=== PATIENT | male | born 1960 | race Caucasian/White ===

== ENCOUNTER → 2024-02-14 09:34 | Outpatient (REF) | payer BC, SELFPAY ==
[2024-02-14 12:18] LABS: % Basophils 1.1 % (0-2); % Eosinophils 3.7 % (0-6); % Immature Granulocytes 0.1 % (0-0.5); % Lymphocytes 28.4 % (20.5-51.1); % Monocytes 10.5 % (1.7-9.3); % Neutrophils 56.2 % (42.2-75.2); Absolute Basophils 0.1 10^3/uL (0-0.2); Absolute Eosinophils 0.3 10^3/uL (0-0.7); Absolute Monocytes 0.7 10^3/uL (0.1-0.6); Absolute Neutrophils 3.9 10^3/uL (1.4-6.5); Hematocrit 46.4 % (39.0-52.0); Hemoglobin 16.3 g/dL (13.0-18.0); Mean Corp Hgb Conc. 35.1 g/dL (33.0-37.0); Mean Corpuscular Hgb 30.8 pg (27.0-31.0); Mean Corpuscular Volume 87.5 fL (80.0-94.0); Mean Platelet Volume 11.7 fL (7.4-10.4); Nucleated Red Blood Cells % 0 % (-); Platelet Count 189 10^3/uL (130-400); Red Cell Dist. Width 12.9 % (11.5-14.5)
[2024-02-14 12:31] LABS: ALT (SGPT) 57 U/L (0-50); AST (SGOT) 39 U/L (17-59); Albumin 4.4 g/dl (3.5-5.0); Alkaline Phosphatase 72 U/L (38-126); Blood Urea Nitrogen 16 mg/dl (9-20); Calcium 9.7 mg/dl (8.4-10.2); Carbon Dioxide 23 mmol/L (22-30); Chloride 107 mmol/L (98-107); Glucose 113 mg/dl (70-99); Potassium 4.4 mmol/L (3.5-5.1); Sodium 144 mmol/L (135-145); Total Bilirubin 0.8 mg/dl (0.2-1.3); Total Protein 7.2 g/dl (6.3-8.2); eGFR > 60.00
[2024-02-14 13:02] LABS: PSA, Total - Screen 2.12 ng/ml (0.0-4.0); TSH Reflex To Free T4 3.42 uIU/ml (0.47-4.68)
[2024-02-14 15:08] LABS: Glycohemoglobin (HgbA1c) 5.9 % (4.0-5.6)
== END ==
LOC: HWLAB 09:34
PROVIDERS: ATTENDING PHYSICIAN Nurse Practitioner Family
DX: R35.0 Frequency of micturition (principal); R63.5 Abnormal weight gain; R73.01 Impaired fasting glucose
CPT/HCPCS: 36415; 80053; 83036; 84443; 85025; G0103

== ENCOUNTER 2024-03-19 10:44 | Emergency (ER) | payer BC, SELFPAY ==
[2024-03-19] VITALS (9 sets, daily range): BP systolic 135–161; BP diastolic 82–100; PULSE 66–70; BMI 32.5
--- NOTE | 2024-03-19 11:31 | ED.GENMED ---
History of Present Illness
General
Chief Complaint: Fainting Sensation
Source: patient
Time Seen by Provider: 03/19/24 11:15
History of Present Illness
History of Present Illness:
63yoM with a history of hyperlipidemia, GERD, and anxiety presenting with his for evaluation of dizziness. He reports constant mild lightheadedness for the past 6 days. Nothing seems to make this better or worse. He started to experience
tinnitus in his right ear last night. Patient states he tenderness has a pattern to it although he is unable to describe this. He told his PCP that his tenderness was pulsatile although he denies this for me. He started to feel mildly off balance
earlier today. He denies any vertiginous symptoms. He was seen by his PCP earlier today and he was sent to the ED for evaluation. Of note, patient was seen by a retinal specialist last week and was diagnosed with a 'pucker' on his retina. He was
started on prednisolone and ketorolac drops 1 day prior to his symptoms starting. He stopped taking the eyedrops due to his dizziness. He spoke with his service supervisor to told him that his symptoms are likely unrelated to these eyedrops. He is
otherwise asymptomatic and denies any headache, visual changes, vomiting, diarrhea, fevers, chills, chest pain, shortness of breath.
Past History
Past History
ED Past Medical History: None
ED Past Surgical History: None
Social History
Tobacco: Non-smoker
Alcohol: None
Drug: None
Personal:
Phy Exam
General Physical Exam
General Presentation: well appearing and no apparent distress
General age: appears stated age
General Skin: warm and dry
General Habitus: normal
General Mental: alert
General Hydration: appears well hydrated
ENT Exam
ENT Exam: TM's normal, pharynx normal and normocephalic
Eye Exam
Eye Exam: PERRL and EOMI
Cardiovascular Exam
Cardiovascular Exam: regular rate/rhythm
Pulmonary Exam
Pulmonary Exam: lungs clear, no respiratory distress, no crackles and no wheezing
Neurological Exam
Neurological Exam: alert and no motor deficits
Ruddy Coma Scale
Eye Opening: Spontaneous
Verbal Response: Oriented
Motor Response: Obeys Commands
GCS Total Score: 15
Skin Exam
Skin Exam: normal color and warm/dry
Psychiatric Exam
Psychiatric Exam: normal mood/affect
Course
Orders/Labs/Results
Orders:
Orders
03/19/24 10:47
Electrocardiogram (*1) Urgent
Reason for Study: Other
Other Reason for Exam: lightheaded since tuesday
03/19/24 10:48
EKG- Treatment ONCE
03/19/24 11:29
CT Head & Neck Angio W/wo IV Urgent
Comment:
Reason For Exam: Pulsatile tinnitus
Cardiac Monitoring- Treatment ONCE
Orthostatic VS- Treatment ONCE
03/19/24 11:34
Complete Blood Count/With Diff Urgent
Comprehensive Metabolic Panel Urgent
Troponin I Urgent
Abnormal Lab Results
03/19/24
11:34
MCH 31.9 H pg
(27.0-31.0)
MPV 10.9 H fL
(7.4-10.4)
Absolute Neuts (auto) 7.4 H 10^3/uL
(1.4-6.5)
Absolute Monos (auto) 0.7 H 10^3/uL
(0.1-0.6)
Neutrophils % 75.8 H %
(42.2-75.2)
Lymphocytes % 14.3 L %
(20.5-51.1)
Glucose 151 H mg/dl
(70-99)
ALT 52 H U/L
(0-50)
Albumin 3.0 L g/dl
(3.5-5.0)
03/19/24 11:34
03/19/24 11:34
Vital Signs
Initial and Last Documented VS:
Initial Vital Signs
Temp Pulse Resp BP Pulse Ox
98.6 F 63 16 152/96 98
03/19/24 10:45 03/19/24 10:45 03/19/24 10:45 03/19/24 10:45 03/19/24 10:45
Last Documented Vital Signs
Temp Pulse Resp BP Pulse Ox
98.6 F 63 16 142/99 95
03/19/24 10:45 03/19/24 14:00 03/19/24 10:45 03/19/24 14:00 03/19/24 14:00
MDM/Problems Addressed
Differential Diagnosis Includes:
63yoM here with lightheadedness x 6 days. New R tinnitus since yesterday. Sent here by PCP. No vertiginous symptoms. No CP/SOB. He is afebrile and hemodynamically stable. He is well appearing in no distress. Exam is reassuring. Differential
diagnosis includes but is not limited to: orthostatic hypotension, ACS, arrhythmia, dehydration, doubt CVA
Initial ED plan: Check cardiac labs, EKG, orthostatic vital signs, and CTA head/neck.
*EKG
Interpreted by ED Provider?: Yes
EKG Intrepretation Date: 03/19/24
Heart Rate: 55
Rate: bradycardiac
Rhythm: sinus
[place]: normal axis
Interval: normal interval
QRS Pattern: normal QRS
Ischemia: no ischemia
*Critical Care Note
Total Time (30-74mins, 75-104mins- exclusive of procedures): Not Applicable
Update Note
Update Note:
Labs overall unremarkable including normal blood counts and electrolytes. EKG shows NSR without ischemic changes and troponin WNL. CTA head/neck is negative for acute intracranial abnormalities. There is a R thyroid nodule and a L maxillary sinus
retention cyst/polyp seen incidentally. 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 No indication for hospitalization. Patient and notified of
incidental findings and were provided with a copy of his CT scan report. He was advised to f/u with his PCP and ENT. ED return precautions discussed. He was discharged in stable condition.
ED Attending Note
-
Portions of this chart may have been created with voice recognition software.� Occasional wrong word or��sound alike� substitutions may have occurred due to the inherent limitations of voice recognition software.
Discharge Plan
Departure
Patient Disposition: Home (Routine Discharge)
Date of Disposition: 03/19/24
Time of Disposition: 13:43
Patient with high blood pressure during this ER visit?: Yes
Discharge Problem:
Lightheadedness, New onset tinnitus of right ear, Right thyroid nodule, Premature ventricular contractions (PVCs) (VPCs)
Instructions: Dizziness, Nonvertigo, (DC)
Prescriptions:
No Action
omeprazole 20 MG capsule,delayed release(DR/EC)
20 mg PO DAILY
Symbicort 80/4.5 Mcg Inhaler:
1 puff inhalation DAILY
acetaminophen-codeine 1 TABLET tablet
1 - 2 tab PO Q4HPRN PRN (Reason: mod-severe pain) Qty: 30 0RF
naproxen 500 MG tablet
500 mg PO BID Qty: 20 0RF
Rx Instructions:
same as Aleve, no Rx needed
famotidine 20 MG tablet
20 mg PO BID Qty: 20 0RF
Rx Instructions:
equivalent to Zantac 150 (over the counter)
No Rx needed
amoxicillin-pot clavulanate 1 TABLET tablet
1 tab PO Q12 Qty: 6 0RF
Referrals:
Eric Gonzalez CRNP [Family Provider] -
Charly Chavarria MD [Active] -
Activity Restrictions/Additional Instructions:
Please call today to schedule follow-up appointments with your family doctor and ENT. Return to the ER with any new or worsening symptoms.
You will need an ultrasound of your thyroid for the nodule seen on your CT scan.
Interventions
Interventions:
*Risk Screen - Suicide Last Done: 03/19/24 10:45
*General Assessment Last Done: 03/19/24 11:18
*Neglect/Abuse Screening Last Done: 03/19/24 10:45
*Nursing Disposition Last Done: 03/19/24 14:40
ED- Cardiac Assessment Last Done: 03/19/24 11:36
ED- Neurological Assessment Last Done: 03/19/24 11:36
Discharge Date and Time
Discharge Date/Time: 03/19/24 14:40
Print Language: [place]
[2024-03-19 11:53] LABS: % Basophils 0.6 % (0-2); % Eosinophils 1.6 % (0-6); % Immature Granulocytes 0.4 % (0-0.5); % Lymphocytes 14.3 % (20.5-51.1); % Monocytes 7.3 % (1.7-9.3); % Neutrophils 75.8 % (42.2-75.2); Absolute Basophils 0.1 10^3/uL (0-0.2); Absolute Eosinophils 0.2 10^3/uL (0-0.7); Absolute Lymphocytes 1.4 10^3/uL (1.2-3.4); Absolute Monocytes 0.7 10^3/uL (0.1-0.6); Absolute Neutrophils 7.4 10^3/uL (1.4-6.5); Hemoglobin 17.6 g/dL (13.0-18.0); Mean Corp Hgb Conc. 35.9 g/dL (33.0-37.0); Mean Corpuscular Hgb 31.9 pg (27.0-31.0); Mean Corpuscular Volume 88.9 fL (80.0-94.0); Mean Platelet Volume 10.9 fL (7.4-10.4); Nucleated Red Blood Cells % 0 % (-); Platelet Count 200 10^3/uL (130-400); Red Blood Cell Count 5.51 10^6/uL (4.70-6.10); Red Cell Dist. Width 12.6 % (11.5-14.5); White Blood Cell Count 9.8 10^3/uL (4.8-10.8)
[2024-03-19 12:03] LABS: ALT (SGPT) 52 U/L (0-50); AST (SGOT) 35 U/L (17-59); Alkaline Phosphatase 67 U/L (38-126); Blood Urea Nitrogen 20 mg/dl (9-20); Calcium 9.7 mg/dl (8.4-10.2); Carbon Dioxide 23 mmol/L (22-30); Chloride 107 mmol/L (98-107); Estimated Creatinine Clearance 102 ml/min; Glucose 151 mg/dl (70-99); Potassium 4.3 mmol/L (3.5-5.1); Sodium 143 mmol/L (135-145); Total Bilirubin 0.8 mg/dl (0.2-1.3); Total Protein 7.1 g/dl (6.3-8.2); eGFR > 60.00
[2024-03-19 12:14] LABS: Troponin I < 0.012 ng/ml
== END 2024-03-19 14:40 | disposition home or self-care (01) ==
LOC: EMR 10:44
PROVIDERS: Physician Assistant; EMERGENCY PHYSICIAN Emergency Medicine; FAMILY PHYSICIAN Nurse Practitioner Family
DX: R42 Dizziness and giddiness (principal); H93.11 Tinnitus, right ear; E04.1 Nontoxic single thyroid nodule; I49.3 Ventricular premature depolarization; E78.00 Pure hypercholesterolemia, unspecified; K21.9 Gastro-esophageal reflux disease without esophagitis; F41.9 Anxiety disorder, unspecified
CPT/HCPCS: 99284; 70496; 70498; 80053; 84484; 85025; 93005; Q9967

== ENCOUNTER 2024-03-20 10:37 | Emergency (ER) | payer BC, SELFPAY ==
[2024-03-20 10:45] VITALS: BP 174/92
--- NOTE | 2024-03-20 10:48 | ED.GENMED ---
ED Provider Triage
-
Patient seen by provider in Triage?: Seen in Triage
Attestation: A medical screening examination has been initiated by a qualified medical provider. Based on the assessment performed at this time, it has been determined that an emergent medical condition may exist and the patient has been informed
that further medical evaluation and possible additional diagnostic testing may be needed.
HPI: 63-year-old male returns to the ER due to persistent dizziness, right-sided tinnitus, and right-sided hearing loss. Was seen here yesterday and had labs and CTA of the head and neck that were unremarkable. Symptoms worsened today. Describes
a profound lightheadedness, nonvertiginous. No fevers or chills
GENERAL: Alert , in no apparent distress
EYE: No visual abnormalities.
NECK: Trachea midline
ENT: No visible abnormalities.
LUNGS: No acute respiratory distress
NEUROLOGICAL: Alert and oriented
SKIN: Skin intact. No visible changes.
MUSCULOSKELETAL: Moving extremities normally
PSYCH: Normal and appropriate interaction.
A/P: Given unremarkable workup yesterday, lesser concern for cerebrovascular disorder. Given the associated hearing loss and tinnitus consider M�ni�re's disease versus otitis media. Will give a dose of meclizine and reassess
This is a medical evaluation conducted in person to initiate diagnostic evaluation and provide initial therapeutics. Please see further documentation by the treating clinician.
History of Present Illness
General
Chief Complaint: Dizziness
Time Seen by Provider: 03/20/24 12:11
Past History
Past History
ED Past Medical History: None
ED Past Surgical History: None
Social History
Tobacco: Non-smoker
Alcohol: None
Drug: None
Personal:
Course
Orders/Labs/Results
Orders:
Orders
03/20/24 10:47
Meclizine [Antivert] 25 mg PO NOW STA
03/20/24 12:28
Physical Therapy Consult [Pt Eval And Treat] Urgent
Activity Level: As Tolerated
03/20/24 12:38
Diphenhydramine [Benadryl] 25 mg PO NOW STA
Vital Signs
Initial and Last Documented VS:
Initial Vital Signs
Temp Pulse Resp BP Pulse Ox
98.2 F 74 20 174/92 95
03/20/24 10:45 03/20/24 10:45 03/20/24 10:45 03/20/24 10:45 03/20/24 10:45
Last Documented Vital Signs
Temp Pulse Resp BP Pulse Ox
98.2 F 58 18 147/93 98
03/20/24 10:45 03/20/24 14:43 03/20/24 14:43 03/20/24 14:43 03/20/24 14:43
ED Attending Note
-
Portions of this chart may have been created with voice recognition software.� Occasional wrong word or��sound alike� substitutions may have occurred due to the inherent limitations of voice recognition software.
Discharge Plan
Departure
Patient Disposition: Home (Routine Discharge)
Date of Disposition: 03/20/24
Time of Disposition: 14:16
Patient with high blood pressure during this ER visit?: Yes
Condition: Good
Discharge Problem:
Vertigo, Hearing loss
Instructions: Dizziness
Prescriptions:
New
prednisone 50 mg tablet
50 mg PO DAILY Qty: 5 0RF
meclizine 25 mg tablet
25 mg PO TID Qty: 20 0RF
No Action
omeprazole 20 MG capsule,delayed release(DR/EC)
20 mg PO DAILY
Symbicort 80/4.5 Mcg Inhaler:
1 puff inhalation DAILY
acetaminophen-codeine 1 TABLET tablet
1 - 2 tab PO Q4HPRN PRN (Reason: mod-severe pain) Qty: 30 0RF
naproxen 500 MG tablet
500 mg PO BID Qty: 20 0RF
Rx Instructions:
same as Aleve, no Rx needed
famotidine 20 MG tablet
20 mg PO BID Qty: 20 0RF
Rx Instructions:
equivalent to Zantac 150 (over the counter)
No Rx needed
amoxicillin-pot clavulanate 1 TABLET tablet
1 tab PO Q12 Qty: 6 0RF
Referrals:
Eric Gonzalez CRNP [Family Provider] -
James Kumar MD [Active] - Call in 1-3 days for appt (There is an open appointment at 2:40 PM�if you call [phone] today they can schedule you for an appointment.)
Activity Restrictions/Additional Instructions:
You should call the ENT office today to make an appointment as we discussed. In the meantime you should take the daily steroid and you can use the meclizine as needed for dizziness. If you feel your symptoms are worsening please return immediately
to the ER.
Thank you for visiting the Emergency Department at [facility].
1. Please schedule a follow up appointment as directed. Call first thing tomorrow morning to make an appointment.
2. If indicated, please take your medications as instructed and indicated on discharge paperwork.
3. If any of your symptoms do not improve, or persist, or become more severe within 6-12 hours, please return to the emergency department for further care.
4. Please return to the emergency department if you develop a headache, neck pain/stiffness, fever greater than 100.4F, chest pain, shortness of breath, persistent nausea, vomiting, slurred speech, difficulty walking, numbness/tingling, weakness,
signs of infection or any other symptoms that are worrisome to you.
Please call [phone] if you have any questions.
Interventions
Interventions:
*Risk Screen - Suicide Last Done: 03/20/24 10:49
*Nursing Disposition Last Done: 03/20/24 14:45
ED- Neurological Assessment Last Done: 03/20/24 11:46
ED Swallowing Screen Last Done: 03/20/24 11:46
Discharge Date and Time
Discharge Date/Time: 03/20/24 14:46
Print Language: MAORI
[2024-03-20] MEDS: ANTIVERT 25 MG PO (10:52)
[2024-03-20 11:46] VITALS: BMI 34.4
--- NOTE | 2024-03-20 12:13 | ED.GENMED ---
Addendum entered and electronically signed by Clark Barker PA-C 03/21/24 10:01:
Attestation: A medical screening examination has been initiated by a qualified medical provider. Based on the assessment performed at this time, it has been determined that an emergent medical condition may exist and the patient has been informed
that further medical evaluation and possible additional diagnostic testing may be needed.
HPI: 63-year-old male returns to the ER due to persistent dizziness, right-sided tinnitus, and right-sided hearing loss. Was seen here yesterday and had labs and CTA of the head and neck that were unremarkable. Symptoms worsened today. Describes
a profound lightheadedness, nonvertiginous. No fevers or chills
GENERAL: Alert , in no apparent distress
EYE: No visual abnormalities.
NECK: Trachea midline
ENT: No visible abnormalities.
LUNGS: No acute respiratory distress
NEUROLOGICAL: Alert and oriented
SKIN: Skin intact. No visible changes.
MUSCULOSKELETAL: Moving extremities normally
PSYCH: Normal and appropriate interaction.
A/P: Given unremarkable workup yesterday, lesser concern for cerebrovascular disorder. Given the associated hearing loss and tinnitus consider M�ni�re's disease versus otitis media. Will give a dose of meclizine and reassess
This is a medical evaluation conducted in person to initiate diagnostic evaluation and provide initial therapeutics. Please see further documentation by the treating clinician.
Original Note:
History of Present Illness
<Lili Arteaga PA-C - Last Filed: 03/20/24 14:22>
General
Chief Complaint: Dizziness
Source: patient
Exam Limitations: none
Time Seen by Provider: 03/20/24 12:11
Nursing documentation reviewed up to this point in time: agreed with
History of Present Illness
History of Present Illness:
63-year-old male with past medical history of GERD presents to the emergency department today with concerns of multiple days of disequilibrium, right ear hearing loss, and ringing in his ears. Patient states that he was recently evaluated by retina
specialist and was given drops for a 'spot on his retina' and feels as though his symptoms started after this time. Patient is unsure of what this medication is. Patient reports that he called his eye doctor who said the symptoms are not a side
affect of the medication. Patient states that he feels as though when he is walking he feels off balance. He was seen in the emergency department yesterday for same symptoms and told to follow up with ENT but states that since his visit yesterday,
he has still felt dizzy and states that his hearing loss has gotten worse. He denies nausea, vomiting, headache, fevers or chills, one sided weakness, head or neck trauma.
Past History
<Lili Arteaga PA-C - Last Filed: 03/20/24 14:22>
Past History
ED Past Medical History: None
ED Past Surgical History: None
Social History
Tobacco: Non-smoker
Alcohol: None
Drug: None
Personal:
Review of Systems
<ELIZABETH Espinoza Last Filed: 03/20/24 14:22>
Review of Systems
All Other Systems: ROS reviewed and negative except as documented in HPI and ROS
Phy Exam
<ELIZABETH Espinoza Last Filed: 03/20/24 14:22>
Physical Exam
Physical Exam:
General: Patient is well appearing and in no acute distress; non-toxic
Skin: Warm and dry, no rashes or lesions
Head: Normocephalic, atraumatic
Eyes: Sclera non-icteric. EOMs intact. PERRLA.
Cardiac: Regular rate and rhythm, no murmurs
Peripheral Vascular: No lower extremity swelling or edema
Pulm: Normal respiratory effort, no wheezes
Musculoskeletal: 5/5 strength in bilateral upper and lower extremities
Neuro: CN II-XII intact, no focal neurologic deficits. Normal gait, normal heel to nose, finger to sanderson testing intact
Psychiatric: Appropriate mood and affect.
Course
<Lili Arteaga PA-C - Last Filed: 03/20/24 14:22>
Orders/Labs/Results
Orders:
Orders
03/20/24 10:47
Meclizine [Antivert] 25 mg PO NOW STA
03/20/24 12:28
Physical Therapy Consult [Pt Eval And Treat] Urgent
Activity Level: As Tolerated
03/20/24 12:38
Diphenhydramine [Benadryl] 25 mg PO NOW STA
Vital Signs
Initial and Last Documented VS:
Initial Vital Signs
Temp Pulse Resp BP Pulse Ox
36.8 C 74 20 174/92 95
03/20/24 10:45 03/20/24 10:45 03/20/24 10:45 03/20/24 10:45 03/20/24 10:45
Last Documented Vital Signs
Temp Pulse Resp BP Pulse Ox
36.8 C 74 20 174/92 95
03/20/24 10:45 03/20/24 10:45 03/20/24 10:45 03/20/24 10:45 03/20/24 10:45
<Praful Villalba MD - Last Filed: 03/20/24 14:46>
Orders/Labs/Results
Orders:
Orders
03/20/24 10:47
Meclizine [Antivert] 25 mg PO NOW STA
03/20/24 12:28
Physical Therapy Consult [Pt Eval And Treat] Urgent
Activity Level: As Tolerated
03/20/24 12:38
Diphenhydramine [Benadryl] 25 mg PO NOW STA
Vital Signs
Initial and Last Documented VS:
Initial Vital Signs
Temp Pulse Resp BP Pulse Ox
36.8 C 74 20 174/92 95
03/20/24 10:45 03/20/24 10:45 03/20/24 10:45 03/20/24 10:45 03/20/24 10:45
Last Documented Vital Signs
Temp Pulse Resp BP Pulse Ox
36.8 C 74 20 174/92 95
03/20/24 10:45 03/20/24 10:45 03/20/24 10:45 03/20/24 10:45 03/20/24 10:45
<Lili Arteaga PA-C - Last Filed: 03/20/24 14:22>
MDM/Problems Addressed
Differential Diagnosis Includes:
ddx include BPPV, vestibular neuritis, meniere's disease, otitis media, viral syndrome
MDM/Problems Addressed:
63 y/o male presents to the emergency department today with concerns of dizziness, hearing loss, tinnitus for multiple days. Patient was seen here yesterday and had a CTA which was negative. He feels as though his hearing loss and auditory symptoms
have gotten worse. On physical exam, he is well appearing and in no acute distress. His TMs are intact bilaterally. He has no focal neurologic deficits. He has normal finger to nose, heel to sanderson testing, he has a normal gate. He was given Meclizine
in triage which he feels like mildly improved his symptoms. He was evaluated by physical therapy and had a reassuring HINTS exam. I feel that this patient can be evaluated as an outpatient from an ENT perspective, doubt CVA. Will send steroids and
meclizine to pharmacy. Patient stable for discharge.
Chronic conditions affecting care:
GERD
<Lili Arteaga PA-C - Last Filed: 03/20/24 14:22>
*Pulse Oximetry
Patient hypoxic: no
*Critical Care Note
Total Time (30-74mins, 75-104mins- exclusive of procedures): Not Applicable
Data Reviewed
Review of Other/Old Records Reveals: Records (reviewed ER physician documentation from 03/19/2024, patient seen for lightheadedness) and Discharge Summary (no discharge summary in [facility] to review )
Source: patient and records
Prescriptions/Medications Considered But Not Given:
n/a
Further Testing Considered But Not Given:
n/a
ED Attending Note
<Lili Arteaga PA-C - Last Filed: 03/20/24 14:22>
-
Portions of this chart may have been created with voice recognition software.� Occasional wrong word or��sound alike� substitutions may have occurred due to the inherent limitations of voice recognition software.
<Praful Villalba MD - Last Filed: 03/20/24 14:46>
ED Attending Note
Patient seen and examined by attending physician: Yes
ED Attending Note:
I have seen and evaluated the patient with a [id number] encounter. I have spoken to the advance practicer provider and involved in the medical history, the physical exam, medical decision making.
Evaluation and management service: agree unless noted differently below.
Results interpretation: agree unless noted differently below.
Focused HPI: 63-year-old male with history as documented presents to the emergency room for evaluation of muffled hearing in the right ear, tinnitus, dizziness. Patient reports that Tuesday evening his symptoms started�he says that he had some
transient dizziness/lightheadedness that was followed by ear ringing�he says at times he would hear a 'whoosh' and at other times he hears a ringing. He says he has muffled hearing in his right ear/loss of hearing. He says that yesterday he
started having dizziness as well. He came to the ER and he had a CTA head and neck which was negative for aneurysm; he was discharged with an ENT referral. He says that he feels the dizziness is a bit worse today and so he came back to the ER.
Dizziness is positional�he says it is worse when he moves his head or walks around and somewhat better when he sits still. Denies any headache. Denies any change in his vision or speech. Denies any weakness or numbness in his extremities. He
denies any other complaints
Physical exam: Awake alert not in distress. Hypertensive but otherwise normal vitals. Pupils are equal round and reactive to light bilaterally; extraocular movements are intact although he does have rightward fatigable nystagmus. No vertical or
rotary nystagmus. Visual [place] are intact. Rest of cranial nerves intact 2 through 12. Speech is fluid with no dysarthria or aphasia. He has no limb ataxia, no ataxia on ambulation. Motor and sensory function is intact proximally and distally
in the upper and lower extremities. On HEENT exam his TMs are clear bilaterally with no canal obstruction or drainage.
Medical Decision Makin-year-old male returns to the emergency room with persistent right ear complaints and dizziness. History and exam are consistent with peripheral vertigo�nothing to suggest stroke at this point by history or exam. He
already had CTA head and neck yesterday which was reassuring. He was seen by vestibular therapy here and was treated with meclizine and his symptoms did improve significantly. Case was discussed with ENT they can see him in the office on .
Recommended a short course of steroids. Will also prescribe meclizine as needed. Patient comfortable to this plan. Spoke about return precautions�specifically advised to return with worsening symptoms or if he develops any other neurologic
symptoms. All questions answered.
Discharge Plan
Departure
Patient Disposition: Home (Routine Discharge)
Date of Disposition: 03/20/24
Time of Disposition: 14:16
Patient with high blood pressure during this ER visit?: Yes
Condition: Good
Discharge Problem:
Vertigo, Hearing loss
Instructions: Dizziness
Prescriptions:
New
prednisone 50 mg tablet
50 mg PO DAILY Qty: 5 0RF
meclizine 25 mg tablet
25 mg PO TID Qty: 20 0RF
No Action
omeprazole 20 MG capsule,delayed release(DR/EC)
20 mg PO DAILY
Symbicort 80/4.5 Mcg Inhaler:
1 puff inhalation DAILY
acetaminophen-codeine 1 TABLET tablet
1 - 2 tab PO Q4HPRN PRN (Reason: mod-severe pain) Qty: 30 0RF
naproxen 500 MG tablet
500 mg PO BID Qty: 20 0RF
Rx Instructions:
same as Aleve, no Rx needed
famotidine 20 MG tablet
20 mg PO BID Qty: 20 0RF
Rx Instructions:
equivalent to Zantac 150 (over the counter)
No Rx needed
amoxicillin-pot clavulanate 1 TABLET tablet
1 tab PO Q12 Qty: 6 0RF
Referrals:
Eric Gonzalez CRNP [Family Provider] -
James Kumar MD [Active] - Call in 1-3 days for appt (There is an open appointment at 2:40 PM�if you call [phone] today they can schedule you for an appointment.)
Activity Restrictions/Additional Instructions:
You should call the ENT office today to make an appointment as we discussed. In the meantime you should take the daily steroid and you can use the meclizine as needed for dizziness. If you feel your symptoms are worsening please return immediately
to the ER.
Thank you for visiting the Emergency Department at [facility].
1. Please schedule a follow up appointment as directed. Call first thing tomorrow morning to make an appointment.
2. If indicated, please take your medications as instructed and indicated on discharge paperwork.
3. If any of your symptoms do not improve, or persist, or become more severe within 6-12 hours, please return to the emergency department for further care.
4. Please return to the emergency department if you develop a headache, neck pain/stiffness, fever greater than 100.4F, chest pain, shortness of breath, persistent nausea, vomiting, slurred speech, difficulty walking, numbness/tingling, weakness,
signs of infection or any other symptoms that are worrisome to you.
Please call [phone] if you have any questions.
Interventions
Interventions:
*Risk Screen - Suicide Last Done: 03/20/24 10:49
*Nursing Disposition Last Done: 03/20/24 14:45
ED- Neurological Assessment Last Done: 03/20/24 11:46
ED Swallowing Screen Last Done: 03/20/24 11:46
Discharge Date and Time
Print Language: MARTINIQUAIS
[2024-03-20] MEDS: BENADRYL 25 MG PO (13:03)
[2024-03-20 14:43] VITALS: BP 147/93
== END 2024-03-20 14:46 | disposition home or self-care (01) ==
LOC: EMR 10:37
PROVIDERS: EMERGENCY PHYSICIAN Emergency Medicine; FAMILY PHYSICIAN Nurse Practitioner Family
DX: H91.91 Unspecified hearing loss, right ear (principal); R42 Dizziness and giddiness; K21.9 Gastro-esophageal reflux disease without esophagitis; R03.0 Elevated blood-pressure reading, without diagnosis of hypertension
CPT/HCPCS: 99283

== ENCOUNTER → 2024-04-20 09:18 | Outpatient (REF) | payer BC, SELFPAY | LOC: MRI 09:18 | PROVIDERS: ATTENDING PHYSICIAN Otolaryngology; FAMILY PHYSICIAN Nurse Practitioner Family | DX: H90.3 Sensorineural hearing loss, bilateral (principal); H81.10 Benign paroxysmal vertigo, unspecified ear | CPT/HCPCS: 70553; A9575 ==

== ENCOUNTER → 2024-07-17 09:27 | Outpatient (REF) | payer BC, SELFPAY | LOC: RAD 09:27 | PROVIDERS: ATTENDING PHYSICIAN Otolaryngology; FAMILY PHYSICIAN Nurse Practitioner Family | DX: E04.1 Nontoxic single thyroid nodule (principal) | CPT/HCPCS: 76536 ==

== ENCOUNTER → 2024-08-08 10:47 | Outpatient (REF) | payer BC, SELFPAY ==
[2024-08-08 11:34] VITALS: BP 126/93; BP_SYST 69
== END ==
LOC: RADI 10:47
PROVIDERS: ATTENDING PHYSICIAN Otolaryngology
DX: E04.1 Nontoxic single thyroid nodule (principal)
CPT/HCPCS: 88173; 10005

== ENCOUNTER → 2024-09-14 10:35 | Outpatient (REF) | payer BC, SELFPAY ==
[2024-09-14 13:23] LABS: Blood Urea Nitrogen 16 mg/dl (9-20); Calcium 10.1 mg/dl (8.4-10.2); Carbon Dioxide 27 mmol/L (22-30); Chloride 104 mmol/L (98-107); Glucose 118 mg/dl (70-99); Potassium 4.9 mmol/L (3.5-5.1); Sodium 143 mmol/L (135-145); eGFR > 60.00
== END ==
LOC: HWLAB 10:35
PROVIDERS: ATTENDING PHYSICIAN Nurse Practitioner Family
DX: I10 Essential (primary) hypertension (principal)
CPT/HCPCS: 36415; 80048

== ENCOUNTER → 2025-03-05 09:58 | Outpatient (REF) | payer BC, SELFPAY | LOC: HWRAD 09:58 | PROVIDERS: ATTENDING PHYSICIAN Otolaryngology; FAMILY PHYSICIAN Nurse Practitioner Family | DX: E05.10 Thyrotoxicosis with toxic single thyroid nodule without thyrotoxic crisis or storm (principal) | CPT/HCPCS: 76536 ==

== ENCOUNTER → 2025-04-15 11:35 | Outpatient (REF) | payer BC, SELFPAY ==
[2025-04-15 14:36] LABS: Hematocrit 48.1 % (39.0-52.0); Hemoglobin 16.6 g/dL (13.0-18.0); Mean Corp Hgb Conc. 34.5 g/dL (33.0-37.0); Mean Corpuscular Volume 93.0 fL (80.0-94.0); Nucleated Red Blood Cells % 0 % (-); Platelet Count 204 10^3/uL (130-400); Red Cell Dist. Width 12.5 % (11.5-14.5)
[2025-04-15 15:02] LABS: ALT (SGPT) 37 U/L (0-50); AST (SGOT) 28 U/L (17-59); Albumin 4.3 g/dl (3.5-5.0); Alkaline Phosphatase 68 U/L (38-126); Blood Urea Nitrogen 16 mg/dl (9-20); Calcium 9.1 mg/dl (8.4-10.2); Carbon Dioxide 30 mmol/L (22-30); Chloride 104 mmol/L (98-107); Glucose 114 mg/dl (70-99); HDL Cholesterol 45 mg/dl; LDL Cholesterol, Calculated 56 mg/dl; Potassium 4.3 mmol/L (3.5-5.1); Sodium 142 mmol/L (135-145); Total Protein 7.2 g/dl (6.3-8.2); Very Low Density Lipoprotein 21 mg/dl (0-30); eGFR > 60.00
[2025-04-15 15:32] LABS: PSA, Total - Screen 3.12 ng/ml (0.0-4.0)
[2025-04-16 09:09] LABS: Glycohemoglobin (HgbA1c) 5.9 % (4.0-5.9)
== END ==
LOC: HWLAB 11:35
PROVIDERS: ATTENDING PHYSICIAN Nurse Practitioner Family
DX: F41.1 Generalized anxiety disorder (principal); E66.9 Obesity, unspecified; Z12.5 Encounter for screening for malignant neoplasm of prostate; R73.03 Prediabetes; E78.5 Hyperlipidemia, unspecified; Z00.00 Encounter for general adult medical examination without abnormal findings
CPT/HCPCS: 36415; 80053; 80061; 83036; 84443; 85025; G0103